=== PATIENT | female | born 1985 | race American Indian/Alaskan Native ===

== ENCOUNTER 2017-02-10 17:43 | Outpatient (CLI) | payer MEDICAID ==
[2017-02-10] MEDS ORDERED: LACTATED RINGERS 500 ML IV ONE (18:29)
[2017-02-11 01:53] VITALS: BP 110/62
--- NOTE | 2017-02-11 08:44 | Ultrasound Report ---
ULTRASOUND OB LIMITED History: well being, evaluate amniotic fluid Technique: Transabdominal ultrasound with Doppler interrogation. Gestation: Single Position: Cephalic Amniotic Fluid: Normal HAYLEY = 19.2 cm Heart Rate: 166 BPM
== END 2017-02-10 19:20 | disposition home or self-care (01) ==
LOC: NM 17:43 → TRG 17:45 → NM 19:20
PROVIDERS: ATTEND Obstetrics & Gynecology
DX: O99.333 Smoking (tobacco) complicating pregnancy, third trimester (principal); O47.03 False labor before 37 completed weeks of gestation, third trimester; Z3A.34 34 weeks gestation of pregnancy
CPT/HCPCS: 59025; 76815

== ENCOUNTER 2018-07-27 11:58 | Emergency (ER) | payer BC, MEDICAID ==
--- NOTE | 2018-07-27 12:10 | Emergency Department Report ---
Chief Complaint: Headache Stated Complaint: FALL DOWN THE STAIRS/HEAD PAIN Time Seen by Provider: 07/27/18 12:06 - HPI History of Present Illness: This is a 32 y.o. who fell down the stairs at home. Patient fell from the top of stairs and hitting the back of head against multiple steps. Patient reports periods of forgetfulness. - ROS Review of Systems: Dizziness, tennitus, headache with pressure, and nausea. - Exam Vital Signs: Vital Signs 07/27/18 12:06 Temperature 98.4 F Pulse Rate 79 Respiratory 18 Rate Blood Pressure 130/78 O2 Sat by Pulse 96 Oximetry MSE screening note: Focused history and physical exam performed. Due to findings the following was ordered: urine hCG & CT of head ED Disposition for MSE Condition: Stable
[2018-07-27 12:58] LABS: HCG Qualitative,Urine Negative (Negative)
--- NOTE | 2018-07-27 13:46 | Emergency Department Report ---
HPI - General Chief Complaint: Headache Time Seen by Provider: 07/27/18 12:06 - HPI HPI: 32-year-old -[place] female presents to the emergency department with complaint of a 2 to three-day history of a headache after slipping on a totally and falling down some stairs on Thursday, 3 days ago. Patient says that she also slipped down a few stairs yesterday. The first time she did hit her head but is unsure of loss of consciousness. Since that time she has been having some ringing in the ears, sensitivity to light and some nonspecific dizziness/lightheadedness. She tried some ibuprofen for her symptoms without any relief. She drove herself in to be seen today. No other past medical history. ED Past Medical Hx - Past Medical History Hx Hypertension: No Hx Diabetes: No Hx Deep Vein Thrombosis: No Hx Renal Disease: No Hx Sickle Cell Disease: No Hx Seizures: No Hx Asthma: No Hx HIV: No - Surgical History Additional Surgical History: tubal ligation - Social History Smoking Status: Current Every Day Smoker Substance Use Type: None ED Review of Systems ROS: Stated complaint: FALL DOWN THE STAIRS/HEAD PAIN Other details as noted in HPI Comment: All other systems reviewed and negative Constitutional: denies: chills, fever Eyes: other (light sensitivity). denies: eye pain ENT: denies: throat pain, dental pain Respiratory: denies: cough, shortness of breath Cardiovascular: denies: chest pain, palpitations Gastrointestinal: denies: abdominal pain, vomiting Genitourinary: denies: dysuria, discharge Musculoskeletal: denies: joint swelling, arthralgia Skin: denies: rash, lesions Neurological: headache. denies: weakness, numbness, paresthesias Physical Exam - Physical Exam Vital Signs: Vital Signs 07/27/18 12:06 Temperature 98.4 F Pulse Rate 79 Respiratory 18 Rate Blood Pressure 130/78 O2 Sat by Pulse 96 Oximetry Physical Exam: GENERAL: The patient is well-developed well-nourished. HEENT: Normocephalic. Atraumatic. Patient has moist mucous membranes. EYES: Extraocular motions are intact. Pupils are equal and reactive to light bilaterally. No nystagmus. NECK: Supple. Trachea is midline. CHEST/LUNGS: Clear to auscultation. There is no respiratory distress noted. HEART/CARDIOVASCULAR: Regular. There is no tachycardia. There is no obvious murmur. ABDOMEN: Abdomen is soft, nontender. Patient has normal bowel sounds. There is no abdominal distention. SKIN: Skin is warm and dry. NEURO: The patient is awake, alert, and oriented. The patient is cooperative. The patient has no focal neurologic deficits. The patient has normal speech. Cranial nerves II through XII grossly intact. No pronator drift. No dysmetria. MUSCULOSKELETAL: There is no tenderness or deformity. There is no limitation range of motion. There is no evidence of acute injury. ED Course Vital Signs 07/27/18 12:06 Temperature 98.4 F Pulse Rate 79 Respiratory 18 Rate Blood Pressure 130/78 O2 Sat by Pulse 96 Oximetry ED Medical Decision Making - Radiology Data Radiology results: report reviewed, image reviewed interpreted by me: X-ray of the cervical spine does not show any fracture, dislocation, subluxation, or any acute process. CT HEAD WITHOUT CONTRAST: HISTORY: Rule out concussion. TECHNIQUE: Sequential 2.5mm CT images. COMPARISON: none. FINDINGS: Cerebral Parenchyma: Within normal limits. Cerebellum: Within normal limits. Brainstem: Within normal limits. Ventricles: Normal. Sella: Normal. Extra-axial spaces: Normal. Basal Cisterns: Normal. Intracranial Hemorrhage: None. Midline Shift: None. Calvarium: Normal. Sinuses: Normal. Mastoid Air Cells: Normal. Visualized Orbits: Normal. IMPRESSION: Cranial CT scan within normal limits. Transcribed By: TTR Dictated By: LANCE ROSE JR, MD Electronically Authenticated By: LANCE ROSE JR, MD Signed Date/Time: 07/27/18 1523 - Medical Decision Making Patient presents to the emergency department with a complaint of a headache, some mild neck pain, nonspecific lightheadedness/dizziness after falling down some stairs about 3 days ago. Since being in the emergency department, the patient is awake, alert, oriented. She has no focal, motor or sensory deficits and her cranial nerves have been intact. CT scan of head without contrast showed a bleed, shift, mass, ischemia or any other acute process. X-ray of the cervical spine does not show any fracture, subluxation or any acute process. Patient may be having some postconcussion symptoms. I spoke to her about decreasing stimulation, driving restrictions, and the necessity for follow-up with primary care and/or neurology. She was given referrals for these phys icians and she has been instructed to return to the emergency department with any worsening of her symptoms or any acute distress. She was seen ambulatory in the emergency department and both appears and feels stable. - Differential Diagnosis tension headache, migraine, subarachnoid, concussion Critical Care Time: No Critical care attestation.: If time is entered above; I have spent that time in minutes in the direct care of this critically ill patient, excluding procedure time. ED Disposition Clinical Impression: Fall Qualifiers: Encounter type: initial encounter Qualified Code(s): W19.XXXA - Unspecified fall, initial encounter Headache Qualifiers: Headache type: unspecified Headache chronicity pattern: unspecified pattern Intractability: not intractable Qualified Code(s): R51 - Headache Disposition: DC- TO HOME OR SELFCARE Is pt being admited?: No Condition: Stable Instructions: Minor Head Injury (ED), Acute Headache (ED), Post Concussion Syndrome (ED) Additional Instructions: Please follow up with a primary care physician in the next few days. Try to avoid any significant stimulation until your headache and post concussion-like symptoms improve or resolve. It is also recommended that you do not drive a car or operate any heavy machinery until cleared by your primary care physician or a neurologist. Return to the emergency Department with any worsening of your symptoms or any acute distress. Referrals: SANTI JUAREZ MD [Primary Care Provider] - 2-3 Days RAFAEL GRIJALVA MD [Staff Physician] - 2-3 Days [facility] [Outside] - 2-3 Days Time of Disposition: 16:14
[2018-07-27] MEDS ORDERED: TYLENOL PO ONE (13:47)
--- NOTE | 2018-07-27 14:52 | XRay Report ---
CERVICAL SPINE, 3 views: History: Fall, neck pain. AP and lateral views of the cervical spine were obtained. Mild degenerative disc disease is identified at C3-4 and C5-6. There is no evidence of fracture or subluxation. There is loss of the normal cervical lordotic curve suggestive of muscle spasm. The prevertebral soft tissues are within normal limits. IMPRESSION: Loss of cervical lordosis suggesting muscle spasm vs. variation in patient positioning. Mild cervical disc disease as described. Otherwise negative cervical spine.
--- NOTE | 2018-07-27 15:27 | Cat Scan Report ---
CT HEAD WITHOUT CONTRAST: HISTORY: Rule out concussion. TECHNIQUE: Sequential 2.5mm CT images. COMPARISON: none. FINDINGS: Cerebral Parenchyma: Within normal limits. Cerebellum: Within normal limits. Brainstem: Within normal limits. Ventricles: Normal. Sella: Normal. Extra-axial spaces: Normal. Basal Cisterns: Normal. Intracranial Hemorrhage: None. Midline Shift: None. Calvarium: Normal. Sinuses: Normal. Mastoid Air Cells: Normal. Visualized Orbits: Normal. IMPRESSION: Cranial CT scan within normal limits.
[2018-07-27] MEDS ORDERED: TORADOL IM ONE (15:36)
[2018-07-27 17:38] VITALS: BP 110/50
== END 2018-07-27 17:00 | disposition home or self-care (01) ==
LOC: ED 11:58
DX: R51 Headache (principal); M54.2 Cervicalgia; R42 Dizziness and giddiness; F17.200 Nicotine dependence, unspecified, uncomplicated; Z98.51 Tubal ligation status; W10.8XXA Fall (on) (from) other stairs and steps, initial encounter; Y93.89 Activity, other specified; Y92.89 Other specified places as the place of occurrence of the external cause; Y99.8 Other external cause status
CPT/HCPCS: 70450; 72040; 81025; 96372; 99284; J1885

== ENCOUNTER 2021-08-10 12:32 | Emergency (ER) | payer BC, MEDICAID ==
[2021-08-10] MEDS ORDERED: HYDROcodone/ACETAMINOPHEN 5-325 MG TAB PO STA (13:18)
[2021-08-10] MEDS ORDERED: LIDOCAINE VISCOUS 2% 15 ML ORAL LIQD MM ONE (13:18)
--- NOTE | 2021-08-10 14:12 | Emergency Department Report ---
ED ENT HPI - General Chief complaint: Dental/Oral Stated complaint: ABCESS IN MOUTH Source: patient Mode of arrival: Ambulatory Limitations: No Limitations - History of Present Illness Initial comments: 35-year-old female is emerged from complaining of right dental pain and swelling over the last 3 to 4 days and depression worsening fashion pain is worse with palpation ports no fever, chills, sweats. No foul taste or odors. No odynophagia or dysphagia. No known dental trauma. MD complaint: tooth pain -: Gradual Location: tooth # Severity: mild, moderate Quality: aching, dull Consistency: constant Improves with: none Worsens with: none Context- Dental: history of dental caries Associated Symptoms: gum swelling, toothache. denies: pain with swallowing, sore throat, tinnitus, discharge from ear, rhinorrhea - Related Data Previous Rx's Medication Instructions Recorded Last Taken Type Amoxicillin [Amoxicillin TAB] 875 mg PO BID #20 tablet 08/10/21 Unknown Rx Chlorhexidine Mouthwash [Peridex] 15 ml MM BID #1 bottle 08/10/21 Unknown Rx Ketorolac [Toradol] 10 mg PO Q6H PRN #15 tablet 08/10/21 Unknown Rx Lidocaine Viscous 2% 5 ml MM Q3H PRN #120 udc 08/10/21 Unknown Rx Allergies Allergy/AdvReac Type Severity Reaction Status Date / Time No Known Allergies Allergy Unverified 03/27/15 03:56 ED Dental HPI - General Chief complaint: Dental/Oral Stated complaint: ABCESS IN MOUTH Source: patient Mode of arrival: Ambulatory Limitations: No Limitations - Related Data Previous Rx's Medication Instructions Recorded Last Taken Type Amoxicillin [Amoxicillin TAB] 875 mg PO BID #20 tablet 08/10/21 Unknown Rx Chlorhexidine Mouthwash [Peridex] 15 ml MM BID #1 bottle 08/10/21 Unknown Rx Ketorolac [Toradol] 10 mg PO Q6H PRN #15 tablet 08/10/21 Unknown Rx Lidocaine Viscous 2% 5 ml MM Q3H PRN #120 udc 08/10/21 Unknown Rx Allergies Allergy/AdvReac Type Severity Reaction Status Date / Time No Known Allergies Allergy Unverified 03/27/15 03:56 ED Review of Systems ROS: Stated complaint: ABCESS IN MOUTH Other details as noted in HPI Comment: All other systems reviewed and negative ED Past Medical Hx - Past Medical History Previous Medical History?: Yes Hx Hypertension: No Hx Diabetes: No Hx Deep Vein Thrombosis: No Hx Renal Disease: No Hx Sickle Cell Disease: No Hx Seizures: No Hx Asthma: No Hx HIV: No Additional medical history: Vaginal delivery x 5 - Surgical History Past Surgical History?: Yes Additional Surgical History: tubal ligation - Social History Smoking Status: Current Every Day Smoker Substance Use Type: None - Medications Home Medications: Home Medications Medication Instructions Recorded Confirmed Last Taken Type Amoxicillin [Amoxicillin TAB] 875 mg PO BID #20 tablet 08/10/21 Unknown Rx Chlorhexidine Mouthwash [Peridex] 15 ml MM BID #1 bottle 08/10/21 Unknown Rx Ketorolac [Toradol] 10 mg PO Q6H PRN #15 tablet 08/10/21 Unknown Rx Lidocaine Viscous 2% 5 ml MM Q3H PRN #120 udc 08/10/21 Unknown Rx ED Physical Exam - General Limitations: No Limitations General appearance: alert, in no apparent distress - Head Head exam: Present: atraumatic, normocephalic - Eye Eye exam: Present: normal appearance - ENT ENT exam: Present: mucous membranes moist, other (Pain to the right lower dental molar) - Expanded ENT Exam Expanded 1 - Dental Tenderness 2 - Other (Pain with mild swelling to this region) - Neck Neck exam: Present: normal inspection - Respiratory Respiratory exam: Present: normal lung sounds bilaterally. Absent: respiratory distress - Cardiovascular Cardiovascular Exam: Present: regular rate, normal rhythm. Absent: systolic murmur, diastolic murmur, rubs, gallop - GI/Abdominal GI/Abdominal exam: Present: soft, normal bowel sounds - Extremities Exam Extremities exam: Present: normal inspection - Back Exam Back exam: Present: normal inspection - Neurological Exam Neurological exam: Present: alert, oriented X3 - Psychiatric Psychiatric exam: Present: normal affect, normal mood - Skin Skin exam: Present: warm, dry, intact, normal color. Absent: rash ED Course Vital Signs 08/10/21 12:47 Temperature 98.6 F Pulse Rate 78 Respiratory 16 Rate Blood Pressure 112/72 O2 Sat by Pulse 97 Oximetry Critical care attestation.: If time is entered above; I have spent that time in minutes in the direct care of this critically ill patient, excluding procedure time. ED Disposition Clinical Impression: Dentalgia, Dental infection Disposition: 01 HOME / SELF CARE / HOMELESS Is pt being admited?: No Does the pt Need Aspirin: No Condition: Stable Instructions: Dental Abscess, Preventive Dental Care, Adult Prescriptions: Amoxicillin [Amoxicillin TAB] 875 mg PO BID #20 tablet Lidocaine Viscous 2% 5 ml MM Q3H PRN #120 udc PRN Reason: Pain, Moderate (4-6) Chlorhexidine Mouthwash [Peridex] 15 ml MM BID #1 bottle Ketorolac [Toradol] 10 mg PO Q6H PRN #15 tablet PRN Reason: Pain Referrals: [facility] [Outside] - 3-5 Days [facility] [Outside] - 3-5 Days SANTI JUAREZ MD [Primary Care Provider] - 3-5 Days
[2021-08-10 14:26] VITALS: BP 121/73
== END 2021-08-10 14:24 | disposition home or self-care (01) ==
LOC: ED 12:32
DX: K04.7 Periapical abscess without sinus (principal); F17.200 Nicotine dependence, unspecified, uncomplicated; Z98.51 Tubal ligation status; Z79.899 Other long term (current) drug therapy
CPT/HCPCS: 99282